=== PATIENT | female | born 1990 | race Caucasian/White ===

== ENCOUNTER 2017-01-24 13:08 | Emergency (ER) | payer MEDICAID ==
[~2017-01-24] VITALS: Ht 160 cm; Wt 68.0 kg
[~2017-01-24 13:08] MED LIST: PREN-129 PO
[2017-01-24 13:38] VITALS: BP 114/64
[2017-01-24] MEDS ORDERED: IBUPROFEN 600 MG TAB PO ONE (13:45)
== END 2017-01-24 15:18 | disposition home or self-care (01) ==
LOC: ER 13:08
DX: S60.052A Contusion of left little finger without damage to nail, initial encounter (principal); W07.XXXA Fall from chair, initial encounter; Y93.89 Activity, other specified; Y99.8 Other external cause status; Y92.89 Other specified places as the place of occurrence of the external cause; F17.210 Nicotine dependence, cigarettes, uncomplicated
CPT/HCPCS: 73130

== ENCOUNTER 2021-04-11 17:23 | Emergency (ER) | payer MEDICAID, OTHER ==
[~2021-04-11] VITALS: Ht 162.6 cm; Wt 81.6 kg
[2021-04-11 17:36] VITALS: BP 119/78
== END 2021-04-11 20:27 | disposition left against medical advice (07) ==
LOC: ER 17:23
DX: K08.89 Other specified disorders of teeth and supporting structures (principal); Z53.21 Procedure and treatment not carried out due to patient leaving prior to being seen by health care provider

== ENCOUNTER 2021-07-02 22:34 | Emergency (ER) | payer MEDICAID ==
[~2021-07-02] VITALS: Ht 162.6 cm; Wt 84.5 kg
[2021-07-02 23:42] LABS: Basophils # (auto) 0 10 ^3/uL (0-0.2); Basophils % (auto) 0.5 % (0.0-2.0); Eosinophils # (auto) 0.1 10 ^3/uL (0-0.8); Eosinophils % (auto) 1.2 % (0.0-7.0); Hematocrit 34.1 % (36.0-46.0); Hemoglobin 12.1 g/dL (12.2-16.2); Lymphocytes # (auto) 2.3 10 ^3/uL (0.4-5.4); Lymphocytes % (auto) 41.5 % (10.0-50.0); Mean Corpuscular Hemoglobin 30.2 pg (28.0-32.0); Mean Corpuscular Hgb Conc. 35.4 g/dL (32.0-36.0); Mean Corpuscular Volume 85.2 fL (80.0-100.0); Monocytes # (auto) 0.5 10 ^3/uL (0-1.3); Neutrophils # (auto) 2.5 10 ^3/uL (1.6-8.6); Neutrophils % (auto) 46.8 % (37.0-80.0); Nucleated Red Blood Cells % 0.1 %; Red Cell Distribution Width 14.4 % (11.8-14.3); White Blood Cell 5.4 10^3/uL (4.4-10.8)
[2021-07-02 23:59] LABS: Albumin 2.7 g/dL (3.4-5.0); BUN/Creatinine Ratio 18.4; Calcium 8.4 mg/dL (8.5-10.1); Potassium 3.3 mmol/L (3.5-5.1)
[2021-07-03 00:02] LABS: Bilirubin, Total 0.1 mg/dL (0.2-1.0); Total Protein 6.4 g/dL (6.4-8.2)
[2021-07-03] MEDS ORDERED: ACETAMINOPHEN 325 MG TAB PO ONE (03:30)
[2021-07-03 06:00] VITALS: BP 11/66
== END 2021-07-03 06:10 | disposition home or self-care (01) ==
LOC: ER 22:40
DX: O98.512 Other viral diseases complicating pregnancy, second trimester (principal); U07.1 COVID-19; O99.512 Diseases of the respiratory system complicating pregnancy, second trimester; J45.909 Unspecified asthma, uncomplicated; O99.332 Smoking (tobacco) complicating pregnancy, second trimester; Z3A.00 Weeks of gestation of pregnancy not specified
CPT/HCPCS: 36415; 71045; 80053; 85025; 87426; 93005

== ENCOUNTER 2021-12-23 01:05 | Observation (INO) | payer MEDICAID ==
[~2021-12-23] VITALS: Ht 162.6 cm; Wt 94.8 kg
== END 2021-12-23 01:55 | disposition left against medical advice (07) ==
LOC: LDRP 01:05
PROVIDERS: ADMIT Obstetrics & Gynecology Obstetrics; ATTEND Obstetrics & Gynecology Obstetrics
DX: O62.9 Abnormality of forces of labor, unspecified (principal); O9A.213 Injury, poisoning and certain other consequences of external causes complicating pregnancy, third trimester; S50.811A Abrasion of right forearm, initial encounter; S80.212A Abrasion, left knee, initial encounter; O99.323 Drug use complicating pregnancy, third trimester; F14.90 Cocaine use, unspecified, uncomplicated; Z3A.41 41 weeks gestation of pregnancy; W19.XXXA Unspecified fall, initial encounter; Y93.89 Activity, other specified; Y92.89 Other specified places as the place of occurrence of the external cause; Z87.891 Personal history of nicotine dependence; Z53.29 Procedure and treatment not carried out because of patient's decision for other reasons
CPT/HCPCS: 59025; 81002; G0378

== ENCOUNTER 2023-02-10 10:08 | Emergency (ER) | payer MEDICAID ==
[~2023-02-10] VITALS: Ht 162.6 cm; Wt 84.8 kg
[2023-02-10 12:24] VITALS: BP 113/66
[2023-02-10] MEDS ORDERED: IBUP800T26 PO (13:06)
== END 2023-02-10 13:19 | disposition home or self-care (01) ==
LOC: ER 10:08
DX: S60.221A Contusion of right hand, initial encounter (principal); J45.909 Unspecified asthma, uncomplicated; F17.210 Nicotine dependence, cigarettes, uncomplicated; X50.9XXA Other and unspecified overexertion or strenuous movements or postures, initial encounter; Y93.89 Activity, other specified; Y92.89 Other specified places as the place of occurrence of the external cause; Y99.8 Other external cause status
CPT/HCPCS: 29125; 73110; 73130

== ENCOUNTER 2024-05-22 07:05 | Emergency (ER) | payer MEDICAID ==
[~2024-05-22] VITALS: Ht 157.5 cm; Wt 102.9 kg
[~2024-05-22 07:05] MED LIST changes: +IBUP-1455 PO
[2024-05-22 07:40] VITALS: BP 127/67; PULSE 81; RESP 16; TEMP 98.8; O2SAT 97
[2024-05-22] MEDS ORDERED: AUG875T PO (08:02)
[2024-05-22] MEDS ORDERED: ZOFR4T PO (09:13)
== END 2024-05-22 09:31 | disposition home or self-care (01) ==
LOC: ER 07:06
DX: J32.9 Chronic sinusitis, unspecified (principal); J45.909 Unspecified asthma, uncomplicated; F17.210 Nicotine dependence, cigarettes, uncomplicated; Z32.02 Encounter for pregnancy test, result negative
CPT/HCPCS: 81025

== ENCOUNTER 2024-09-20 20:13 | Emergency (ER) | payer MEDICAID ==
[~2024-09-20] VITALS: Ht 157.5 cm; Wt 96.2 kg
[~2024-09-20 20:13] MED LIST changes: +AUG875T PO; +ZOFR4T PO
[2024-09-20 20:45] VITALS: BP 134/71; PULSE 100; RESP 18; O2SAT 98
[2024-09-20 22:05] LABS: Rapid Influenza B Negative (Negative)
[2024-09-20 22:23] LABS: Rapid Influenza A Positive (Negative)
[2024-09-20] MEDS: KETOROLAC TROMETH 60MG/2ML VIAL IM ONE (22:24)
[2024-09-20] MEDS: ACETAMINOPHEN 325 MG TAB PO ONE (22:36)
[2024-09-20] MEDS ORDERED: OSEL75CA5 PO (22:46)
--- NOTE | 2024-09-20 22:46 | ED.PDOC ---
Eye-HPI HPI Comments This is a 34-year-old female presents to the ED chief complaint flu-like s ymptoms x2 days. Patient complaining of headache, fevers, bilateral ear pain, throat pain, nause. Take [id number] medications with some relief. Breathing, shortness of breath, chest pain, worst headache of her life, vomiting, abdominal pain or diarrhea. Chief Complaint: Flu like Time Seen by MD: 20:25 Primary Care Provider: NONE Reviewed Notes: Nurses Notes, Medications, Allergies Allergies: Coded Allergies: NO KNOWN ALLERGIES (Unverified , 01/11/11) Home Meds Active Scripts Oseltamivir Phosphate (Tamiflu) 75 Mg Cap, 1 CAP PO BID for 5 Days, #10 CAP Prov:MING URIAS MANAGER SHELL 09/20/24 Ondansetron Odt 4MG Tab (ZOFRAN PO) 4 Mg Tb, 4 MG PO Q8HPRN PRN for 2 Days, #6 TAB 0 Refills ODT TAB-DISSOLVE IN MOUTH, THEN SWALLOW Prov:SEGUNDO [employer] COORDINATOR 05/22/24 Amoxicillin & Pot Clavulanate (AUGMENTIN TABLET) 875 Mg Tb, 875 MG PO BID for 7 Days, #14 TAB 0 Refills Prov:SEGUNDO [employer] COORDINATOR 05/22/24 Ibuprofen Micronized (Ibuprofen) 800 Mg Tab, 800 MG PO TID PRN, #30 TAB Prov:PENELOPE COY MANAGER SHELL 02/10/23 Reported Medications Vit W/ Ferrous Fumara () Tab, 1 TAB PO DAILY, TAB 06/11/14 Mode of Arrival: Ambulatory Past Medical History PAST MEDICAL HISTORY: Asthma Surgical History: Denies all surgeries SENIOR ORACLE DBA History: No Pertinent SENIOR ORACLE DBA History Family History Family History: Unknown Social History Smoker: Cigarettes Alcohol: Denies ETOH Use Drugs: Denies Drug Use Lives In: Home Constitutional: reports: fever; denies: chills, diaphoresis, fatigue, malaise, sweats, weakness, others EENTM: reports: ear pain, nasal discharge, throat pain; denies: blurred vision, double vision, ear bleeding, ear discharge, ear drainage, ear ringing, eye pain, eye redness, hearing loss, mouth pain, mouth swelling, nose bleeding, nose congestion, nose pain, photophobia, tearing, throat swelling, voice changes, others Respiratory: denies: cough, hemoptysis, orthopnea, SOB at rest, shortness of breath, SOB with excertion, stridor, wheezing, others Cardiovascular: denies: chest pain, dizzy spells, diaphoresis, Dyspnea on exertion, edema, irregular heart beat, left arm pain, lightheadedness, palpitations, PND, syncope, others Gastrointestinal: denies: abdomen distended, abdominal pain, blood streaked bowels, constipated, diarrhea, dysphagia, difficulty swallowing, hematemesis, melena, nausea, poor appetite, poor fluid intake, rectal bleeding, rectal pain, vomiting, others Genitourinary: denies: abnormal vagina bleeding, burning, dyspareunia, dysuria, flank pain, frequency, hematuria, incontinence, pain, , vagina discharge, urgency, others Neurological: reports: headache; denies: dizziness, fainting, left sided numbness, left sided weakness, numbness, paresthesia, pre-existing deficit, right sided numbness, right sided weakness, seizure, speech problems, tingling, tremors, weakness, others Musculoskeletal: denies: back pain, gout, joint pain, joint swelling, muscle pain, muscle stiffness, neck pain, others Integumetry: denies: bruises, change in color, change in hair/nails, dryness, laceration, lesions, lumps, rash, wounds, others Allergic/Immunocompromised: denies: Difficulty Healing, Frequent Infections, Hives, Itching, others Hematologic/Lymphatic: denies: anemia, blood clots, easy bleeding, easy bruising, swollen glands, others Endocrine: denies: excessive hunger, excessive sweating, excessive thirst, excessive urination, flushing, intolerance to cold, intolerance to heat, unexplained weight gain, unexplained weight loss, others Psychiatric: denies: anxiety, bipolar disorder, depression, hopeless, panic disorder, schizophrenia, sleepless, suicidal, others Physical Exam General Appearance: No Apparent Distress, Normal HEENT: Pharyngeal Erythema, TMs Normal Neck: Full Range of Motion, Non-Tender Respiratory: Lungs Clear, No Respiratory Distress, Normal Breath Sounds Cardiovascular: No Edema, No JVD, No Murmur, No Gallop, Normal Peripheral Pu lses, Regular Rate/Rhythm Breast Exam: Deferred Gastrointestinal: No Organomegaly, Non Tender, No Pulsatile Mass, Normal Bowel Sounds, Soft Genitalia: Deferred Pelvic: Deferred Rectal: Deferred Extremities: Normal capillary refill, Normal inspection, Normal range of motion, Non-tender, No pedal edema Musculoskeletal : Apperance: Normal Neurologic: Alert, stock patch sawyer II-XII nml as Tested, No Motor Deficits, Normal Affect, Normal Mood, No Sensory Deficits Cerebellar Function: Normal Reflexes: Normal Skin: Dry, Normal Color, Warm Lymphatic: No Adenopathy Was a procedure done? Was a procedure done?: No EENT DIFF Eye: N/A Ear: Otitis Media Sore Throat: Streptococcal, Viral Pharyngitis X-Ray, Labs, Meds, VS Vital Signs Date Time Temp Pulse Resp B/P (MAP) Pulse Ox O2 Delivery O2 Flow Rate FiO2 09/20/24 23:20 99.7 09/20/24 22:36 101.8 09/20/24 20:45 99.9 100 22 134/71 (92) 98 99.9 09/20/24 20:45 100 18 98 Room Air* 0 21 09/20/24 20:27 100.0 100 18 134/71 (92) 97 Lab Test 09/20/24 21:15 Range/Units Influenza Type A Antigen Positive Negative Influenza Type B Antigen Negative Negative Current Medications Medications (Trade) Dose Ordered Sig/Connie Route Start Time Stop Time Status Last Admin Ketorolac Tromethamine (Toradol Injection) 60 mg ONCE ONCE IM 09/20/24 22:30 09/20/24 22:31 DC 09/20/24 22:24 Acetaminophen (Tylenol Tablet) 975 mg ONCE ONCE PO 09/20/24 22:30 09/20/24 22:31 DC 09/20/24 22:36 X-Ray, Labs, Meds, VS Comment Influenza a positive. Trial Tamiflu. Rest increase p.o. fluids with electrolytes. Follow up with your PCP in 2-3 days as necessary. [id number] Tylenol or Motrin as needed for pain or fever per labeled dosing instructions. ER return precautions provided and agrees with discharge plan of care. Time of 1ST Reevaluation: 22:45 Reevaluation 1ST: Improved Patient Education/Counseling: Diagnosis, Treatment, Prognosis, Need For Follow Up Family Education/Counseling: No Family Present Departure 1 Departure Time of Disposition: 22:45 Impression: Primary Impression: Influenza A Disposition: 01 HOME / SELF CARE / HOMELESS Condition: Stable e-Prescriptions Oseltamivir Phosphate (Tamiflu) 75 Mg Cap 1 CAP PO BID for 5 Days, #10 CAP Prov: MING URIAS 09/20/24 Discharged With: Self Critical Care Note Critical Care Time?: No Stability Stability form required: MING Emerson Sep 20, 2024 22:46
[2024-09-20 23:20] VITALS: TEMP 99.7
== END 2024-09-20 23:20 | disposition home or self-care (01) ==
LOC: ER 20:13
DX: J10.1 Influenza due to other identified influenza virus with other respiratory manifestations (principal); J45.909 Unspecified asthma, uncomplicated; F17.210 Nicotine dependence, cigarettes, uncomplicated; Z79.899 Other long term (current) drug therapy
CPT/HCPCS: 87804; 96372; 99283; J1885